=== PATIENT | female | born 2000 | race Caucasian/White ===

== ENCOUNTER → 2024-08-30 | Outpatient (CLI) | payer MEDICAID ==
--- NOTE | 2024-08-30 07:58 | USB ---
Reason for Exam: Clinical finding. Technique: Method: Targeted. Findings: The upper section of the breast of the right breast, the axilla of the right breast and the retroareolar of the right breast were scanned. Technique utilized:US breast limited RT Image; Ultrasound imaging of: Area of concern, retroareolar region and axilla. No suspicious masses. Scattered simple and slightly complex appearing cyst. No suspicious masses or suspicious cysts. Overall Assessment: Benign, BI-RAD 2 Management: Screening Mammogram of both breasts at age 39. A clinical breast exam by your physician is recommended on an annual basis and results should be correlated with mammographic findings. This exam should not preclude additional follow-up of suspicious palpable abnormalities. Results were given to the patient verbally at the time of exam. [facility], , 08/30/2024 7:52 AM. Electronically signed and approved by: Young Byrd DO
== END | disposition home or self-care (01) ==
LOC: RADUSWWP 06:52
PROVIDERS: ATTEND Family Medicine
DX: N63.15 Unspecified lump in the right breast, overlapping quadrants (principal)